=== PATIENT | male | born 1950 | race African-American/Black ===

== ENCOUNTER 2016-07-12 22:45 | Emergency (ER) | payer SELFPAY ==
[~2016-07-12 22:45] MED LIST: CALCIUM CHLORIDE 1,000 MG/10 ML DISP.SYRIN IV ONE; EPINEPHRINE 1 MG/10 ML DISP.SYRIN. ONE; SODIUM BICARB ADULT 8.4% 50 MEQ/50 ML DISP.SYRIN. ONE
--- NOTE | 2016-07-12 22:59 | PHYS DOC ---
Past Medical History Past Medical History: Hypertension Additional Past Medical Histor: ESRD on dialysis Additional Past Surgical Histo: bilateral BKA Social History Unknown Adult General HPI HPI Patient is a 66 year old male who presents by EMS in cardiac arrest. He was found at home down for unknown down time. He was seen alive approximately 4 hours prior. Family notes he has not been feeling well for the past couple of days and he missed dialysis today. EMS arrived to find him in asystole. ACLS was performed and he had an idioventricular rhythm during one check noted, so they transported him here. He has since continued to have asystole/PEA. A left proximal humerus IO was placed by EMS. He was given IV fluids and epinephrine x multiple, he was given atropine after idioventricular rhythm was seen. Review of Systems Review of Systems Unable to obtain secondary to clinical status Physical Exam Physical Exam Constitutional: Nonresponsive [] HENT: Normocephalic, atraumatic, bilateral external ears normal, oropharynx moist, no oral exudates, nose normal. [] Eyes: Pupils mid and fixed and equal, conjunctiva normal, no discharge. [] Neck: supple, no palpable step-off. [] Cardiovascular: Pulseless, cool [] Lungs & Thorax: No spontaneous breathing, bagged bilateral breath sounds that are equal [] Abdomen: soft, distended. [] Skin: Warm, dry, no erythema, no rash. [] Back: Not examined due to clinical status. [] Extremities: No obvious deformity, bilateral below-knee amputations. [] Neurologic: GCS 3. [] Psychologic: Unable to assess secondary to clinical status. [] Course & Med Decision Making Course & Med Decision Making Patient arrived in cardiac arrest with active chest compressions. Please see nursing code sheet for exact details of resuscitation. He was noted to be in PEA. IVs, monitor, oxygen were placed per ACLS guidelines. He was given intermittent and epinephrine for continued PEA. He was intubated with a glidescope with one try with ease. He was given calcium, bicarbonate, and IV fluids without improvement. He had approximately 30 minutes total downtime and futility was recognized. Time of was called at 2256. Discussed care with patient's family. Family accepted the news appropriately. Discussed care with Dr. Gusman, on-call for Dr. Gallo, his primary care doctor. Dr. Gusman agrees to notify Dr. Gallo and will take care of the certificate. Dragon Disclaimer Dragon Disclaimer This electronic medical record was generated, in whole or in part, using a voice recognition dictation system. Critical Care Time Critical care time was 30 minutes exclusive of procedures. Intubation Procedure Intub Indication: Respiratory failure Consent: Unable to give consent due to emergent nature. Medications Used: see nursing note Procedure: The patient was placed in the appropriate position. Intubation was performed with glidescope 3 curved blade with 7.5 endotracheal tube. ET tube secured 25 cm at the gum. Initial confirmation of placement included bilateral breath sounds, tube fogging, adequate chest rise, adequate pulse oximetry reading. The patient tolerated the procedure well. Complications: none. Departure Departure Impression: Primary Impression: Cardiac arrest Disposition: 20 Condition: Marian PAZ MD Jul 12, 2016 22:59
== END 2016-07-13 03:18 | disposition expired ==
LOC: ER 22:45
DX: I46.9 Cardiac arrest, cause unspecified (principal); I13.11 Hypertensive heart and chronic kidney disease without heart failure, with stage 5 chronic kidney disease, or end stage renal disease; N18.6 End stage renal disease; Z99.2 Dependence on renal dialysis; Z89.511 Acquired absence of right leg below knee
CPT/HCPCS: 31500; 92950; 99291; J0171; J3490